=== PATIENT | female | born 1950 | race Caucasian/White ===

== ENCOUNTER → 2020-09-01 16:24 | Outpatient (CLI) | payer MEDICARE, SELFPAY ==
[2020-09-01 15:47] VITALS: BMI 35.6
[2020-09-01 17:59] LABS: Anion Gap 4 (5-15); BUN 16 mg/dL (7-18); BUN/Creat Ratio 15.5 RATIO (10-20); Chloride 104 mmol/L (98-107); Creatinine, Serum 1.03 mg/dL (0.55-1.02); EST Glomerular Filtration Rate 57 mL/min (>60); Est Glom Filt Rate - Afr Amer 69 mL/min (>60); Glucose 79 mg/dL (74-106); Potassium 3.8 mmol/L (3.5-5.1); Sodium Level 137 mmol/L (136-145)
[2020-09-01 18:01] LABS: BNP,B-Type NATRIURETIC PEPTIDE 12.1 pg/mL (0-100)
== END ==
PROVIDERS: Visit Provider Internal Medicine Cardiovascular Disease
DX: I10 Essential (primary) hypertension (principal)
CPT/HCPCS: 36415; 80048; 83880

== ENCOUNTER → 2020-09-15 13:13 | Outpatient (CLI) | payer MEDICARE, SELFPAY ==
[2020-09-01 15:47] VITALS: BMI 35.6
--- NOTE | 2020-09-15 13:16 | ECHOD_ITS ---
Reason For Study: CHF Procedure This was a 2D Doppler, Color Flow transthoracic echocardiogram. Contrast injection was performed. Exam performed in department. Left Ventricle Normal LV size. Left ventricular systolic function is normal. The estimated ejection fraction is 55 %. No regional wall motion abnormalities noted. Right Ventricle Normal RV size. Normal systolic function. Atria Normal left atrium. Normal right atrium. Mitral Valve Normal mitral valve. Tricuspid Valve Normal tricuspid valve. Mild (1+) tricuspid valve insufficiency. Pulmonary artery systolic pressure is 30 mmHg. Aortic Valve Normal aortic valve. Pulmonic Valve Normal pulmonic valve. Great Vessels Normal aortic root. The pulmonary artery is normal size. Normal inferior vena cava. Pericardium/Pleural No pericardial effusion. Medication Diluted definity 2ml given slow IV push to enhance endocardial definition. MMode/2D Measurements & Calculations LVIDd: 5.2 cm IVSd: 0.98 cm Ao root diam: 2.5 cm LVIDs: 3.1 cm LVPWd: 1.0 cm RVDd: 3.9 cm FS: 41.2 % LAV(MOD-bp): 46.2 ml LVAd ap4: 24.4 cm2 SV(MOD-sp4): 46.5 ml LAV(MOD-bp) Indexed: 23.2 ml/m2 EDV(MOD-sp4): 67.5 ml LAV(MOD-sp2): 33.9 ml EDV(sp4-el): 69.8 ml LAV(MOD-sp4): 61.3 ml LVAs ap4: 12.7 cm2 ESV(MOD-sp4): 21.0 ml ESV(sp4-el): 19.8 ml EF(MOD-sp4): 68.9 % EF(sp4-el): 71.6 % SV(sp4-el): 50.0 ml LA A4 area: 20.6 cm2 LA dimension(2D): 4.3 cm RA A4 area: 14.0 cm2 Doppler Measurements & Calculations MV E max homero: 87.2 cm/sec Lat Peak E' Homero: 9.7 cm/sec Med Peak E' Homero: 6.9 cm/sec MV A max homero: 59.8 cm/sec E/E' lat: 8.9 E/E' med: 12.6 MV E/A: 1.5 Ao V2 max: 148.7 cm/sec LV V1 max: 103.7 cm/sec PA V2 max: 79.0 cm/sec Ao max P.8 mmHg LV V1 max P.3 mmHg Ao V2 mean: 95.5 cm/sec Ao mean P.1 mmHg Ao V2 VTI: 33.5 cm TR max homero: 261.4 cm/sec TR max P.3 mmHg Interpretation Summary Normal LV size. Left ventricular systolic function is normal. The estimated ejection fraction is 55 %. Pulmonary artery systolic pressure is 30 mmHg. Contrast injection was performed. Ordering Physician: Mike Bangura Referring Physician: Mike Bangura Performed By: Florecita Wang RDCS, RVT
== END ==
PROVIDERS: Referring Provider Internal Medicine Cardiovascular Disease; Visit Provider Internal Medicine Cardiovascular Disease
DX: I11.0 Hypertensive heart disease with heart failure (principal); I50.32 Chronic diastolic (congestive) heart failure
CPT/HCPCS: 93306; Q9957; A4216; C8929